=== PATIENT | female | born 1995 | race Two or more races ===

== ENCOUNTER 2024-05-23 19:05 | Emergency (ER) | payer OTHER, SELFPAY ==
[2024-05-23 19:06] VITALS: BMI 27.4
[2024-05-23 19:27] VITALS: BP 134/82; PULSE 105; RESP 18; TEMP 39.3; O2SAT 97
[2024-05-23 20:00] VITALS: TEMP 39.3
[2024-05-23] MEDS: ACETAMINOPHEN 500 MG TABLET 1000 MG PO (20:00)
[2024-05-23 20:01] VITALS: TEMP 39.3
[2024-05-23] MEDS: IBUPROFEN TAB 600 MG TABLET PO (20:01)
--- NOTE | 2024-05-23 20:17 | EDRME_ITS ---
Rapid Medical Screening Exam [facility] Arrival date/time: 05/23/24 19:05 28F with no sigificant PMH presents to ED with several days of fevers/chills, and flank/pelvic pain. Patient denies dysuria, but states she gets frequent UTIs, but this feels different. Patient denies URI symptoms. Chief Complaint: General Adult/Misc Complain Vital signs: Vital Signs Temperature 102.7 F H 05/23/24 19:27 Pulse Rate 105 H 05/23/24 19:27 Respiratory Rate 18 05/23/24 19:27 Blood Pressure 134/82 H 05/23/24 19:27 Pulse Oximetry (%) 97 05/23/24 19:27 Oxygen Delivery Method Room Air 05/23/24 19:27
[2024-05-23 21:09] LABS: Collection Type, Urine Clean Catch
[2024-05-23 21:11] LABS: Lactate (Lactic Acid) 1.1 mMol/L (0.4-2.0)
[2024-05-23 21:21] LABS: Basophils # (Auto) 0.1 Thou/mm3 (0.0-0.2); Basophils % (Auto) 0 % (0-2.5); Eosinophils % (Auto) 0 % (0-10); Hematocrit 36.6 % (36.0-46.0); Hemoglobin 12.4 g/dL (12.0-16.0); Immature Granulocytes % (Auto) 1 % (0-0); Immature Granulocytes Auto 0.08 Thou/mm3 (0.00-0.00); Lymphocytes # (Auto) 0.8 Thou/mm3 (1.0-4.8); Lymphocytes % (Auto) 6 % (10-50); Mean Corpuscular HGB Conc 33.9 g/dl (31.0-37.0); Mean Corpuscular Hemoglobin 28.7 pg (25.0-35.0); Mean Corpuscular Volume 85 fL (80-100); Monocytes # (Auto) 1.1 Thou/mm3 (0.0-0.8); Monocytes % (Auto) 8 % (0-12); Neutrophils # (Auto) 11.8 Thou/mm3 (1.8-7.7); Neutrophils % (Auto) 86 % (37-80); Nucleated Red Blood Cell % 0 /100 WBC (0); Platelet Count 196 Thou/mm3 (140-440); Red Blood Count 4.32 Miln/mm3 (4.00-5.20); White Blood Count 13.7 Thou/mm3 (3.6-11.0)
[2024-05-23 21:31] LABS: HCG Qualitative,Urine Negative
[2024-05-23 21:34] LABS: Bacteria,Urine Rare; Bilirubin,Urine Negative (Negative); Blood,Urine Negative (Negative); Clarity,Urine Turbid (Clear/Hazy); Color,Urine Yellow (Lt Yel-Yel); Glucose, Urine Negative (Negative); Ketones,Urine 3+ (Negative); Leukocyte Esterase,Urine Positive (Negative); Nitrite,Urine Negative (Negative); PH,Urine 6.5 (5.0-7.0); Protein,Urine 2+ (Neg - Trace); RBC,Urine 6 /hpf (0-3); Squamous Epithelial Cell,Urine 6 /hpf (0-5); Urobilinogen,Urine Negative mg/dL (0.0-1.0); WBC,Urine 144 /hpf (0-5)
[2024-05-23 21:35] LABS: Culture Indicated,Urine Yes
[2024-05-23 21:40] LABS: Alanine Aminotransferase 13 U/L (10-49); Albumin, Serum 4.3 gm/dL (3.5-5.0); Albumin/Globulin Ratio 1.3 (1.2-2.2); Alkaline Phosphatase 55 U/L (46-116); Anion Gap 9 (7-16); Aspartate Amino Transferase 18 U/L (0-34); BUN/Creatinine Ratio 9 Ratio (12-20); Bilirubin,Total 0.8 mg/dL (0.3-1.2); Blood Urea Nitrogen 11 mg/dL (9-23); Calcium 9.2 mg/dL (8.3-10.6); Calcium (Corrected) 9.2 mg/dL (8.5-10.1); Carbon Dioxide 24.5 mMol/L (20.0-31.0); Chloride 104 mMol/L (98-107); Creatinine (Component) 1.2 mg/dL (0.6-1.3); Estimated Creatinine Clearance 67.5 mL/min (>60); Globulin 3.3 gm/dL (2.3-3.5); Glucose 144 mg/dL (74-106); Lipase 31 U/L (12-53); Osmolality,Calculated 276 (275-295); Potassium 3.2 mMol/L (3.4-5.1); Procalcitonin 0.26 ng/ml (0.0-0.49); Sodium 137 mMol/L (136-145); Total Protein 7.6 gm/dL (5.7-8.2); eGFR > 60 See Note
[2024-05-23 21:41] LABS: Amphetamine/Methamp Scrn,U Negative (Negative); Barbiturate Screen,Urine Negative (Negative); Benzodiazepines Screen,Urine Negative (Negative); Benzoylecgonine Screen, Ur Negative (Negative); Fentanyl Screen,Urine Negative (Negative); Opiate Screen,Urine Negative (Negative); THC Screen,Urine Negative (Negative)
[2024-05-23] MEDS: SODIUM CHLORIDE 0.9% 1000 ML 1,000 ML 999 ML IV (22:22)
[2024-05-24 00:09] VITALS: TEMP 36.4
[2024-05-24 00:10] VITALS: BP 113/68; PULSE 75; RESP 18; TEMP 36.4; O2SAT 99
--- NOTE | 2024-05-24 01:20 | PD.EDADULT ---
ED General RME/HPI General Chief complaint: General Adult/Misc Complain Stated complaint: FEVER, BACK PAIN Time Seen by Provider: 05/23/24 21:29 Arrival date/time: 05/23/24 19:05 Limitations: no limitations RME / HPI RME / HPI narrative: 05/23/24 19:05 28F with no sigificant PMH presents to ED with several days of fevers/chills, and flank/pelvic pain. Patient denies dysuria, but states she gets frequent UTIs, but this feels different. Patient denies URI symptoms. Dr. Hernandez's Main ED Evaluation: 28yo female with no significant past medical history presents to the ED for a chief complaint left flank pain x 1 day. No radiation or migration. Patient reports having a subjective fever at home, reporting she felt generally bad, so she came in for evaluation. She denies any N/V, abdominal pain, dysuria or any other associated symptoms. No known allergies. Related Data Previous Rx's ?Medication ?Instructions ?Recorded ibuprofen 600 mg tablet 600 mg PO Q8H PRN fever or pain 02/20/18 #30 tabs cephalexin 500 mg capsule 500 mg PO TID #21 caps 05/24/24 Allergies Allergy/AdvReac Type Severity Reaction Status Date / Time No Known Allergies Allergy Verified 04/04/18 13:41 Review of Systems Review of Systems Systems Reviewed: All systems reviewed, normal except as documented Past Medical History Past Medical History CARDIAC: Negative Congestive Heart Failure RESPIRATORY: Negative Chronic Obstructive Pulmonary Disease (COPD) GENITOURINARY: Negative Renal Disease ENDOCRINE: Negative Diabetes Mellitus Type 1 or Diabetes Mellitus Type 2 Social History SMOKING STATUS: Never smoker ED Exam General Limitations: Present no limitations General appearance: Present alert and in no apparent distress Head Head exam: Present atraumatic Eye Eye exam: Present normal appearance, PERRL and EOMI ENT ENT exam: Present normal exam, normal oropharynx and mucous membranes moist Neck Neck exam: Present normal inspection, full ROM and trachea midline Chest Chest inspection: Present normal inspection and symmetric chest wall rise Respiratory Respiratory exam: Present normal lung sounds bilaterally Cardiovascular Cardiovascular exam: Present regular rate, normal rhythm and normal heart sounds Abdominal Exam Abdominal exam: Present soft and normal bowel sounds Extremities Exam Extremities exam: Present normal inspection and full ROM Back Exam Back exam: Present full ROM and CVA tenderness (L) (mild) Neurological Exam Neurological exam: Present alert, oriented X3 and CN II-XII intact Psychiatric Psychiatric exam: Present normal affect and normal mood Skin Skin exam: Present warm, dry, intact and normal color Course Course Course Narrative: 2155: Sepsis alert initiated. Orders made at this time are congruent with ED Adult Sepsis Order List. Re-evaluation is to be completed. 0009: NS IVF infused. 0039: Sepsis reassessment performed consisting of lab review, vitals, physical exam including auscultation of heart, lungs, and visual evaluation of capillary refills, mucosal membranes and extremities. Patient states she feels significantly better. HR is 75. Patient is stable to be discharged home on antibiotics.. Quality Measures Current suspected stage: ruled out Possible source: genitourinary Blood cultures ordered: yes Antibiotic ordered: Yes Pertinent labs: 05/23/24 20:43 Lactic Acid 1.1 mMol/L (0.4-2.0) Procalcitonin 0.26 ng/ml (0.0-0.49) sepsis Orders Category Date Time Status Bedside COVID-19 Antigen Test NOW Care 05/23/24 20:28 Active Bedside Influenza A&B Antigen Test NOW Care 05/23/24 20:28 Completed IV [Insert IV] STAT Care 05/23/24 21:29 Completed Insert IV NOW Care 05/23/24 20:16 Active Blood Culture (Lab) Stat Lab 05/23/24 20:37 Received CBC Stat Lab 05/23/24 20:43 Completed CMP [Comprehensive Metabolic Panel] Stat Lab 05/23/24 20:43 Completed Drug Screen,Urine Stat Lab 05/23/24 20:42 Completed HCG Qualitative,Urine Stat Lab 05/23/24 20:42 Completed Lactate (Lactic Acid) Stat Lab 05/23/24 20:43 Completed Lipase Stat Lab 05/23/24 20:43 Completed Procalcitonin Stat Lab 05/23/24 20:43 Completed Urinalysis, C/S if Indicated Stat Lab 05/23/24 20:42 Completed Urine Culture Stat Lab 05/23/24 20:42 Received Acetaminophen Tab [Tylenol ES Tab] Med 05/23/24 19:55 Discontinued 1,000 mg PO X1 ONE Ibuprofen Tab [Motrin Tab] Med 05/23/24 19:55 Discontinued 600 mg PO X1 ONE Sodium Chloride 0.9% 1000 ml [Ns] 1,000 ml Med 05/23/24 20:16 Discontinued IV 999 mls/hr [id number] [Rocephin] 1,000 mg Med 05/23/24 21:47 Discontinued Sodium Chloride 0.9% [Ns] 50 ml IV X1 Vital Signs Vital signs: Vital Signs Temperature 102.7 F H 05/23/24 19:27 Pulse Rate 105 H 05/23/24 19: Respiratory Rate 18 05/23/24 19:27 Blood Pressure 134/82 H 05/23/24 19:27 Pulse Oximetry (%) 97 05/23/24 19:27 Oxygen Delivery Method Room Air 05/23/24 19: Pulse ox is 97% on room air, which is normal according to my interpretation. [facility] Patient data External records reviewed:: [facility] previous records (Per chart review, patient was seen here on 02/20/18 for an ovarian cyst rupture.) Clinical information provided by:: patient Social determinants that could affect healthcare access:: none Patient has the following chronic illnesses:: none How is presenting disease/condition affected by chronic disease/condition?: no chronic disease Evaluation data The following diagnostics were reviewed and interpreted by me:: lab results Lab and/or radiology exams considered but not ordered:: none Interpretation Summary: Bedside COVID and Influenza are negative, WBC count is elevated at 13.7, Potassium is 3.2, Lactic Acid is normal, Procalcitonin is normal, UA is positive for a UTI, HCG is negative, UDS is negative, according to my interpretation. Medications Medications considered but not ordered:: none Medication administrations:: Medication Administration History Discontinued Medications Acetaminophen (Acetaminophen 500 Mg Tablet) 1,000 mg PO X1 ONE Stop: 05/23/24 19:56 Last Admin: 05/23/24 20:00 Dose: 1,000 mg Documented By: ARLEN Sodium Chloride (Ns) 1,000 mls @ 999 mls/hr IV .Q1H1M ONE Stop: 05/23/24 21:16 Last Infusion: 05/24/24 00:09 Dose: Infused Documented By: Admin: 05/23/24 22:22 Dose: 999 mls/hr Documented By: DAMI Ceftriaxone Sodium 1,000 mg/ (Sodium Chloride) 50 mls @ 100 mls/hr IV X1 ONE Stop: 05/23/24 22:16 Last Infusion: 05/23/24 23:49 Dose: Infused Documented By: Admin: 05/23/24 22:20 Dose: 100 mls/hr Documented By: DAMI Ibuprofen (Ibuprofen Tab 600 Mg Tablet) 600 mg PO X1 ONE Stop: 05/23/24 19:56 Last Admin: 05/23/24 20:01 Dose: 600 mg Documented By: ARLEN see above Consultations Consultation(s) initiated? (list below): No Diagnosis Differential Diagnosis ED Complaint MDM: UTI, pyelonephritis, sepsis, kidney stone Most likely diagnosis given after review of the tests above:: see below Admission Indicated Admission indicated?: not indicated Explain why admission is indicated or not indicated:: Admission criteria not met. Patient is stable for outpatient antibiotics. Admission Request Was there a request for admission?: No Disposition Plan Disposition Plan: Discharge Discharge Attestation Discharge Attestation: The patient and all family members were given an opportunity to ask questions and understood the discharge instructions. Discharge instructions specifically effects, indications for sooner follow up or return to the emergency department, and the expected course of current diagnosis. Patient condition: Stable Medical Decision Making MDM Narrative MDM Narrative: 28-year-old female with history of pyelonephritis. The patient has urine is consistent with UTI. She otherwise meets SIRS criteria however procalcitonin and lactic acid are normal. The patient is hemodynamically stable and heart rate is 75. She is tolerating p.o. here in the emergency department and appears well. Abdomen soft nontender nondistended without rebound. The patient has good follow-up and is educated and will take her antibiotics as prescribed. Differential Diagnosis Differential Diagnosis: UTI, pyelonephritis, sepsis, kidney stone Lab Data 05/23/24 20:43 05/23/24 20:43 Labs: Lab Results 05/23/24 05/23/24 Range/Units 20:42 20:43 WBC 13.7 H (3.6-11.0) Thou/mm3 RBC 4.32 (4.00-5.20) Miln/mm3 Hgb 12.4 (12.0-16.0) g/dL Hct 36.6 (36.0-46.0) % MCV 85 (80-100) fL MCH 28.7 (25.0-35.0) pg MCHC 33.9 (31.0-37.0) g/dl RDW Std Deviation 48.0 H (36.4-46.3) fL Plt Count 196 (140-440) Thou/mm3 Neut % (Auto) 86 H (37-80) % Lymph % (Auto) 6 L (10-50) % [place] % (Auto) 8 (0-12) % Eos % (Auto) 0 (0-10) % Baso % (Auto) 0 (0-2.5) % Neut # (Auto) 11.8 H (1.8-7.7) Thou/mm3 Lymph # (Auto) 0.8 L (1.0-4.8) Thou/mm3 [place] # (Auto) 1.1 H (0.0-0.8) Thou/mm3 Eos # (Auto) 0.0 (0.0-0.5) Thou/mm3 Baso # (Auto) 0.1 (0.0-0.2) Thou/mm3 Immature Gran # (Auto) 0.08 H (0.00-0.00) Thou/mm3 Absolute Nucleated RBC 0.00 (0.00-0.00) Thou/mm3 Immature Gran % 1 H (0-0) % Nucleated RBC % 0 (0) /100 WBC Sodium 137 (136-145) mMol/L Potassium 3.2 L (3.4-5.1) mMol/L Chloride 104 (98-107) mMol/L Carbon Dioxide 24.5 (20.0-31.0) mMol/L Anion Gap 9 (7-16) BUN 11 (9-23) mg/dL Creatinine 1.2 (0.6-1.3) mg/dL Estim Creat Clear Calc 67.5 (>60) mL/min eGFR > 60 (60 - ) See Note BUN/Creatinine Ratio 9 L (12-20) Ratio Glucose 144 H (74-106) mg/dL Calculated Osmolality 276 (275-295) Lactic Acid 1.1 (0.4-2.0) mMol/L Calcium 9.2 (8.3-10.6) mg/dL Corrected Calcium 9.2 (8.5-10.1) mg/dL Total Bilirubin 0.8 (0.3-1.2) mg/dL AST 18 (0-34) U/L ALT 13 (10-49) U/L Alkaline Phosphatase 55 (46-116) U/L Total Protein 7.6 (5.7-8.2) gm/dL Albumin 4.3 (3.5-5.0) gm/dL Globulin 3.3 (2.3-3.5) gm/dL Albumin/Globulin Ratio 1.3 (1.2-2.2) Lipase 31 (12-53) U/L Procalcitonin 0.26 (0.0-0.49) ng/ml Ur Collection Type Clean Catch Urine Color Yellow (Lt Yel-Yel) Urine Clarity Turbid A (Clear/Hazy) Urine pH 6.5 (5.0-7.0) Ur Specific [place] 1.030 (1.001-1.035) Urine Protein 2+ A (Neg - Trace) Urine Glucose (UA) Negative (Negative) Urine Ketones 3+ A (Negative) Urine Blood Negative (Negative) Urine Nitrite Negative (Negative) Urine Bilirubin Negative (Negative) Urine Urobilinogen (Auto) Negative (0.0-1.0) mg/dL Ur Leukocyte Esterase Positive (Negative) Urine RBC 6 H (0-3) /hpf Urine WBC 144 H (0-5) /hpf Ur Squamous Epith Cells 6 H (0-5) /hpf Urine Bacteria Rare (None) Ur Culture Indicated? Yes Urine HCG, Qual Negative Urine Opiates Screen Negative (Negative) Urine Fentanyl Screen Negative (Negative) Ur Barbiturates Screen Negative (Negative) U Amphetamin/Meth Scrn Negative (Negative) U Benzodiazepines Scrn Negative (Negative) U Cocaine Metab Screen Negative (Negative) U Marijuana (THC) Screen Negative (Negative) Discharge Plan Plan Patient Disposition: HOME (Self Care) Patient condition on transfer: Stable Prescriptions/Referrals Prescriptions/Med Rec: New cephalexin 500 mg capsule 500 mg PO TID Qty: 21 0RF No Action ibuprofen 600 mg tablet 600 mg PO Q8H PRN (Reason: fever or pain) Qty: 30 0RF Referrals: [facility] [Outside] - 05/24/24 No Primary/Family,Physician [Primary Care Provider] - In 1 week Problem List Clinical Impression: Acute pyelonephritis Patient/Caregiver Discharge Instructions Education Materials: ED Pyelonephritis, Female (Adult) Additional Instructions: Please take the antibiotics as prescribed. If you are taking control pills you will have to use alternate form of control for the next 30 days since you on antibiotics. You can take Tylenol 650 mg 3 times a day for the next 24 hours when you have a fever or not. You can add Motrin 600 mg 3 times a day with food for any pain. Return to the emergency department in the next 24 to 40 hours if you cannot tolerate liquids, fever despite Tylenol Motrin, any increase in abdominal back pain, or any other concerns. You will need to follow-up with your primary care physician in the next 72 hours to get results of the urine culture. Print Language: Danish Stand Alone Forms: [facility] Award Info., Patient Portal Info Letter
[2024-05-24 01:41] VITALS: RESP 18
== END 2024-05-24 01:42 | disposition home or self-care (01) ==
PROVIDERS: Physician Assistant; Emergency Provider Emergency Medicine
DX: N10 Acute pyelonephritis (principal); Z87.440 Personal history of urinary (tract) infections
CPT/HCPCS: 36415; 80053; 80307; 81001; 81025; 83605; 83690; 84145; 85025; 87040; 87077; 87086; 87186; 87400; 87811; 96365; 99284; J0696; J7030; A9270